=== PATIENT | male | born 1975 | race Two or more races ===

== ENCOUNTER 2017-01-26 10:42 | Emergency (ER) | payer OTHER ==
[2017-01-26 10:50] VITALS: BP 127/82; PULSE 69; TEMP 97; O2SAT 98
[2017-01-26 10:51] VITALS: BMI 28.8
--- NOTE | 2017-01-26 11:08 | ED PDOC ---
HPI: Skin/Bite Injury Time Seen by Provider: 01/26/17 11:04 Chief Complaint (Nursing): Bite Chief Complaint (Provider): dog bite History Per: Patient History/Exam Limitations: no limitations Additional Complaint(s): 41yo male comes to the ED for evaluation of dog bite to left calf which occurred prior to arrival today. States the dog is owned by a neighbor and is observable. Last tetanus was less than 10 years ago. [facility] health department has not been contacted. - Animal Bite Description Of The Animal: Neighbor's Pet Animal Appears: Well Past Medical History Reviewed: Historical Data, Nursing Documentation, Vital Signs Vital Signs: Last Vital Signs Temp 97 F L 01/26/17 10:50 Pulse 69 01/26/17 10:50 Resp BP 127/82 01/26/17 10:50 Pulse Ox 98 01/26/17 11:10 - Medical History PMH: No Chronic Diseases - Surgical History Surgical History: No Surg Hx - Family History Family History: States: Unknown Family Hx - Home Medications Home Medications: Ambulatory Orders Medication Instructions Recorded Amoxicillin/Clavulanate [Augmentin 1 tab PO BID #20 tab 01/26/17 875 MG-125 MG] - Allergies Allergies/Adverse Reactions: Allergies Allergy/AdvReac Type Severity Reaction Status Date / Time No Known Allergies Allergy Verified 01/26/17 11:31 Review of Systems ROS Statement: Except As Marked, All Systems Reviewed And Found Negative Constitutional: Negative for: Fever Physical Exam - Reviewed Nursing Documentation Reviewed: Yes Vital Signs Reviewed: Yes - Physical Exam Appears: Positive for: Well, Non-toxic, No Acute Distress Head Exam: Positive for: ATRAUMATIC, NORMAL INSPECTION, NORMOCEPHALIC Skin: Positive for: Warm, Dry Extremity: Positive for: Other (small puncture wound left calf lateral aspect no erythema, drainage, active bleeding. ) Neurologic/Psych: Positive for: Alert, Oriented - ECG O2 Sat by Pulse Oximetry: 98 (RA) Pulse Ox Interpretation: Normal Disposition - Clinical Impression Clinical Impression: Animal bite wound - Patient ED Disposition Is Patient to be Admitted: No - Disposition Referrals: [facility] [Outside] Disposition: Routine/Home Disposition Time: 11:15 Condition: FAIR Prescriptions: Amoxicillin/Clavulanate [Augmentin 875 MG-125 MG] 1 tab PO BID #20 tab Instructions: Animal Bite (ED) Additional Comments - Additional Comments Additional Comments: Scribe Attestation: Documented by Dalton Talbert acting as a scribe for Mian Ba MD Provider Scribe Attestation: All medical record entries made by the Scribe were at my direction and personally dictated by me. I have reviewed the chart and agree that the record accurately reflects my personal performance of the history, physical exam, medical decision making, and the department course for this patient. I have also personally directed, reviewed, and agree with the discharge instructions and disposition.
== END 2017-01-26 11:50 | disposition home or self-care (01) ==
LOC: H.ER 10:42
DX: S81.852A Open bite, left lower leg, initial encounter (principal); W54.0XXA Bitten by dog, initial encounter; Y93.9 Activity, unspecified